=== PATIENT | female | born 1965 | race Caucasian/White ===

== ENCOUNTER 2023-11-23 11:49 | Emergency (ER) | payer BC ==
[2023-11-23 11:58] VITALS: BP 131/74; PULSE 76; RESP 18; TEMP 98; BMI 30.5
[2023-11-23] MEDS: ACETAMINOPHEN 325 MG TABLET (FP) PO ONE (13:13)
[2023-11-23] MEDS: ONDANSETRON 4 MG TABLET PO ONE (13:13)
== END 2023-11-23 15:50 | disposition home or self-care (01) ==
LOC: JER 11:49
PROC: 2W3DX1Z Immobilization of Left Lower Arm using Splint (ICD-10-PCS; principal; 2023-11-23)
DX: S62.102A Fracture of unspecified carpal bone, left wrist, initial encounter for closed fracture (principal); S00.31XA Abrasion of nose, initial encounter; S80.911A Unspecified superficial injury of right knee, initial encounter; S80.912A Unspecified superficial injury of left knee, initial encounter; W01.0XXA Fall on same level from slipping, tripping and stumbling without subsequent striking against object, initial encounter
CPT/HCPCS: 70450-TC; 73070-TC-LT-FY; 73090-TC-LT-FY; 73110-TC-LT-FY; 73130-TC-LT-FY; 73562-TC-LT-FY; 73562-TC-RT-FY; 99284-25